=== PATIENT | male | born 1990 | race Caucasian/White ===

== ENCOUNTER 2022-01-31 01:25 | Emergency (ER) | payer OTHER, SELFPAY ==
--- NOTE | ~2022-01-31 | XR_ITS ---
EXAMINATION: XR foot RT min 3V DATE: 01/31/2022 02:50 INDICATION: Right foot pain TECHNIQUE: Dorsoplantar, lateral, and oblique views of the right foot were obtained. COMPARISON: 09/20/2014 FINDINGS: There is no fracture, dislocation, or subluxation. There is mild osteoarthritis at the firs t metatarsophalangeal joint. The soft tissues are unremarkable. IMPRESSION: 1. No acute osseous abnormality. Reviewed, dictated and finalized at location A.
[2022-01-31 01:26] VITALS: BP 145/93; PULSE 92; RESP 18; TEMP 36.6; O2SAT 99
--- NOTE | 2022-01-31 02:40 | ED.LOWEXIN ---
HPI - Extremity Injury (Lower) General Chief Complaint: Extremity Injury, Lower Stated Complaint: right heel pain Time Seen by Provider: 01/31/22 01:35 Source: patient Mode of arrival: ambulatory Limitations: no limitations History of Present Illness HPI Narrative: This is a 31-year-old male that presents to the emergency department for right heel pain noted over the last week. No known injury or trauma. The pain is worse with ambulation and relieved with rest. Denies fever, erythema, edema, or numbness. Related Data Allergies Allergy/AdvReac Type Severity Reaction Status Date / Time No Known Allergies Allergy Mild Verified 02/24/12 09:05 Review of Systems Review of Systems: CONSTITUTIONAL: Denies fever MUSCULOSKELETAL: Reports joint pain, and myalgia. NEUROLOGIC: Denies numbness, or weakness. All systems reviewed & are unremarkable except as noted in HPI and below PMFSH Past Medical History Medical History (Updated 01/31/22 @ 02:44 by Kacy Julian PA-C) Anxiety Encounter for smoking cessation counseling Exacerbation of asthma Pain of left thumb Upper respiratory tract infection Family History Family History (Updated 05/26/18 @ 08:51 by DOCTOR UNKNOWN) Father Patient's father is in good health Mother Family history of coronary artery disease Social History Social History (Updated 12/16/21 @ 15:13 by Yenni Sanchez MA) Smoking status: Current every day smoker Tobacco type: cigarettes Alcohol intake: current Drinks per week: 24 Alcohol use details: beer Substance use: current Substance use type: marijuana Other substance usage details: every day Exam Narrative: GENERAL: Well-appearing, well-nourished, and in no acute distress. HEAD: Normocephalic, atraumatic. EYES: EOMI. EXTREMITIES: Normal range of motion. No edema, erythema or warmth. Normal DP pulses. Normal sensation SKIN: Warm, dry, no rash. NEURO: No focal deficits. Alert and oriented x3. PSYCH: Normal mood and affect Course Vital Signs Vital signs: Vital Signs Temperature 97.8 F 01/31/22 01:26 Pulse Rate 92 01/31/22 01:26 Respiratory Rate 18 01/31/22 01:26 Blood Pressure 145/93 H 01/31/22 01:26 Pulse Oximetry 99 01/31/22 01:26 Oxygen Delivery Room Air 06/04/22 01:26 Temperature 97.8 F 01/31/22 01:26 Pulse Rate 75 01/31/22 03:01 Respiratory Rate 18 01/31/22 03:01 Blood Pressure 145/86 H 01/31/22 03:01 Pulse Oximetry 99 01/31/22 03:01 Oxygen Delivery Room Air 01/31/22 01:26 MDM - Extremity Injury (Lower) MDM Narrative Medical decision making narrative: Patient presents to the emergency department for right heel pain noted over the last week. No recent injury or trauma. Patient is neurovascularly intact. Right foot x-ray without acute findings. Patient was updated on case findings. Instructed on care of plantar fasciitis. He is to follow-up with primary care doctor. He was given warnings to return to the ER Imaging Data My impression: Right foot x-ray: No acute osseous abnormalities Critical Care Time Critical Care Time Critical Care Time: No Discharge Plan Discharge Clinical Impression: Pain of right heel Patient Disposition: Home, Self-Care Condition: Stable Instructions: Plantar Fasciitis (ED) Additional Instructions: Return to the emergency department if you experience fever, redness and swelling of your foot, numbness, or any other symptoms that are concerning to you Wear shoes with an insert to cushion the heel. Ice and elevate extremity. Tylenol or Ibuprofen as needed and directed. Follow up with your doctor for further care. Prescriptions: No Action sertraline 25 mg tablet 25 mg PO DAILY Qty: 7 0RF Rx Instructions: Take daily x 7 days and then start 50 mg daily. sertraline 50 mg tablet 50 mg PO DAILY Qty: 30 0RF Rx Instructions: Start after you have completed the 50 mg tablets. Follow-up/
[2022-01-31 03:01] VITALS: BP 145/86; PULSE 75; RESP 18; O2SAT 99
== END 2022-01-31 03:01 | disposition home or self-care (01) ==
LOC: ANHED 02:57
PROVIDERS: Emergency Provider General Practice; PCP Internal Medicine
DX: M79.671 Pain in right foot (principal); F17.210 Nicotine dependence, cigarettes, uncomplicated
CPT/HCPCS: 73630; 99283

== ENCOUNTER 2022-05-17 17:59 | Emergency (ER) | payer OTHER, SELFPAY ==
[2022-05-17 18:06] VITALS: BP 145/88; PULSE 94; RESP 16; TEMP 36.9; O2SAT 99
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
== END 2022-05-17 18:57 | disposition home or self-care (01) ==
PROVIDERS: Emergency Provider Nurse Practitioner Family; PCP Internal Medicine
DX: T24.232A Burn of second degree of left lower leg, initial encounter (principal); T24.231A Burn of second degree of right lower leg, initial encounter; T31.0 Burns involving less than 10% of body surface; J45.909 Unspecified asthma, uncomplicated; F17.210 Nicotine dependence, cigarettes, uncomplicated; X03.0XXA Exposure to flames in controlled fire, not in building or structure, initial encounter
CPT/HCPCS: 99283

== ENCOUNTER 2023-06-19 19:14 | Emergency (ER) | payer OTHER, SELFPAY ==
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
[2023-06-19 19:26] VITALS: BP 139/74; PULSE 107; RESP 20; TEMP 36.9; O2SAT 96
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
== END 2023-06-19 20:17 | disposition home or self-care (01) ==
PROVIDERS: Emergency Provider Registered Nurse; PCP Internal Medicine
DX: M79.631 Pain in right forearm (principal); M25.531 Pain in right wrist; J45.909 Unspecified asthma, uncomplicated
CPT/HCPCS: 73110; 99213; G0463

== ENCOUNTER 2023-07-01 11:32 | Emergency (ER) | payer OTHER, SELFPAY ==
[2023-07-01 11:39] VITALS: BP 133/89; PULSE 74; RESP 18; TEMP 36.2; O2SAT 99
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
[2023-07-01 11:50] VITALS: BP 133/89; PULSE 74; RESP 18; TEMP 36.2; O2SAT 99
== END 2023-07-01 11:50 | disposition home or self-care (01) ==
PROVIDERS: Emergency Provider Emergency Medicine; PCP Internal Medicine
DX: D17.21 Benign lipomatous neoplasm of skin and subcutaneous tissue of right arm (principal); F17.210 Nicotine dependence, cigarettes, uncomplicated; Z79.899 Other long term (current) drug therapy
CPT/HCPCS: 99283

== ENCOUNTER 2024-06-27 13:19 | Emergency (ER) | payer OTHER, SELFPAY ==
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
[2024-06-27 13:25] VITALS: BP 158/115; PULSE 86; RESP 20; TEMP 36.7; O2SAT 95
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
[2024-06-27] MEDS: ORPHENADRINE CITRATE 100 MG TABLET.ER PO (14:31)
[2024-06-27 15:52] VITALS: BP 128/78; PULSE 68; RESP 20; TEMP 36.9; O2SAT 100
== END 2024-06-27 15:50 | disposition home or self-care (01) ==
PROVIDERS: Emergency Provider Emergency Medicine; PCP Physician Assistant
DX: S16.1XXA Strain of muscle, fascia and tendon at neck level, initial encounter (principal); T14.8XXA Other injury of unspecified body region, initial encounter; F17.210 Nicotine dependence, cigarettes, uncomplicated; V59.49XA Driver of pick-up truck or van injured in collision with other motor vehicles in traffic accident, initial encounter
CPT/HCPCS: 72125; 99284; A9270; L0150

== ENCOUNTER 2024-08-03 13:12 | Outpatient (CLI) | payer OTHER, SELFPAY ==
--- NOTE | ~2024-08-03 | XR_ITS ---
3 VIEWS LUMBAR SPINE Ordering provider: Clement Gooden, [place] History: . Low back pain . Comparison: None. FINDINGS: VERTEBRAL BODIES:Slight loss of height is seen anteriorly in T12 which is most likely chronic. Otherw ise, No visible fracture or subluxation. DISK SPACES: Normal. SOFT TISSUES: Normal. IMPRESSION: No acute osseous abnormality lumbar spine. Reviewed, dictated and finalized at location A. OMY PROFESSOR
--- NOTE | ~2024-08-03 | XR_ITS ---
XR cervical spine min 6V 08/03/2024 13:45 Indication: Neck pain Procedure: 7 views of the cervical spine Comparison: CT dated 06/27/2024 Findings: no fracture or traumatic malalignment. There is normal cervical alignment. No prevertebral soft tissue swelling. No alteration of alignment with flexion/extension. Lung apices are normal. [place] toid process is normal. Lateral masses normally aligned. There is mild multilevel uncinate hypertroph y. Impression: 1: Mild cervical spondylosis. Reviewed, dictated and finalized at location B. AR[employer] SERVER Impression: 1: Mild cervical spondylosis.
== END 2024-08-03 13:13 | disposition home or self-care (01) ==
PROVIDERS: PCP Physician Assistant; Visit Provider Chiropractor
DX: M47.892 Other spondylosis, cervical region (principal); M54.50 Low back pain, unspecified
CPT/HCPCS: 72052; 72114

== ENCOUNTER 2025-05-27 16:55 | Emergency (ER) | payer OTHER, SELFPAY ==
[2025-05-27 16:56] VITALS: BP 140/96; PULSE 84; RESP 18; TEMP 37.1; O2SAT 98
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
--- NOTE | 2025-05-27 17:13 | PC.NURSE ---
covid culture sent to lab
[2025-05-27 17:23] LABS: Negative Monotest Control Negative (Negative); Positive Monotest Control Positive (Positive)
[2025-05-27 17:38] LABS: Strep Group A RT-PCR NOT DETECTED (Negative)
[2025-05-27 17:49] LABS: Influenza A QL RT-PCR Negative (Negative); Influenza B QL RT-PCR Negative (Negative); RSV RNA, RT-PCR Negative (Negative); SARS-CoV-2 RNA PCR Negative (Negative)
[2025-05-27] MEDS: ACETAMINOPHEN 325 MG TABLET 650 MG PO (18:13)
[2025-05-27] MEDS: IBUPROFEN 600 MG TABLET PO (18:13)
[2025-05-27 18:15] VITALS: BP 133/85; PULSE 72; RESP 16; TEMP 37.1; O2SAT 99
== END 2025-05-27 18:15 | disposition home or self-care (01) ==
PROVIDERS: Emergency Provider Emergency Medicine; PCP Physician Assistant
DX: J32.9 Chronic sinusitis, unspecified (principal); F17.210 Nicotine dependence, cigarettes, uncomplicated; Z20.822 Contact with and (suspected) exposure to COVID-19
CPT/HCPCS: 36415; 86308; 87637; 87651; 99283; A9270; J7512